=== PATIENT | female | born 1950 | race African-American/Black ===

== ENCOUNTER → 2017-07-22 | Outpatient (CLI) | payer OTHER ==
[~2017-07-22] MED LIST: ALBUTEROL2.5 MG/31 INH; ARICEPT 5 MG TAB5 MG PO; ASPIR 8181 MG PO; DARVOCET-N 1001 EACH PO; KEPPRA 500 MG500 M1 PER TUBE; KEPPRA 500 MG500 M1 PO; LISINOPRIL-HCT1 EACH PO; METFORMIN 500500 MG PO; MILK OF MA2400 MG/10 PO; MULTI-VITAMIN1 EAC1 PO; NAMENDA; NORFLEX100 MG PO; PAXIL10 MG PO; PLAVIX 75 MG TA75 M1 PO; PLAVIX 75 MG TA75 MG PO; REGLAN 10 MG TA10 MG PER TUBE; REGLAN 10 MG TA10 MG PO; SIMVASTATIN40 MG PO; TEGRETOL XR200 MG PO; TEGRETOL100 MG/5 M PO; TYLENOL325 MG PO; VALPROIC A250 MG/51 PO
[2017-07-22 10:58] VITALS: BP 124/88
== END | disposition home or self-care (01) ==
LOC: SPEC 06:19
DX: K94.23 Gastrostomy malfunction (principal); I10 Essential (primary) hypertension; E11.9 Type 2 diabetes mellitus without complications; K21.9 Gastro-esophageal reflux disease without esophagitis; J44.9 Chronic obstructive pulmonary disease, unspecified; Z79.4 Long term (current) use of insulin; Z86.73 Personal history of transient ischemic attack (TIA), and cerebral infarction without residual deficits; Z79.82 Long term (current) use of aspirin; Z79.899 Other long term (current) drug therapy; Z88.2 Allergy status to sulfonamides; Z98.890 Other specified postprocedural states

== ENCOUNTER 2018-10-18 17:56 | Emergency (ER) | payer OTHER ==
[~2018-10-18] VITALS: Ht 167.6 cm; Wt 81.7 kg
[~2018-10-18 17:56] MED LIST changes: +IPRAT-ALBUT 0.5-3 ML INH; +MUPIROCIN22 GM TOP; +POTASSIUM20 MEQ/15 PER TUBE; +VALPROIC A250 MG/51 PER TUBE; -VALPROIC A250 MG/51 PO
[2018-10-18 18:06] VITALS: BP 148/79
== END 2018-10-18 18:38 | disposition home or self-care (01) ==
LOC: ER 17:56
DX: Z43.1 Encounter for attention to gastrostomy (principal)

== ENCOUNTER 2019-03-26 07:47 | Emergency (ER) | payer OTHER ==
[~2019-03-26] VITALS: Ht 167.6 cm; Wt 90.7 kg
[2019-03-26 10:04] VITALS: BP 133/67
== END 2019-03-26 11:56 ==
LOC: ER 07:47
DX: K94.23 Gastrostomy malfunction (principal); I10 Essential (primary) hypertension; E11.9 Type 2 diabetes mellitus without complications; K21.9 Gastro-esophageal reflux disease without esophagitis; J44.9 Chronic obstructive pulmonary disease, unspecified; Z86.73 Personal history of transient ischemic attack (TIA), and cerebral infarction without residual deficits; Z88.6 Allergy status to analgesic agent; Y83.8 Other surgical procedures as the cause of abnormal reaction of the patient, or of later complication, without mention of misadventure at the time of the procedure; Y92.89 Other specified places as the place of occurrence of the external cause

== ENCOUNTER 2020-10-07 16:14 | Emergency (ER) | payer OTHER ==
[~2020-10-07] VITALS: Ht 170.2 cm; Wt 68.0 kg
[2020-10-07] MEDS ORDERED: LISINOPRIL5 MG PO (16:19)
[2020-10-07] MEDS ORDERED: METFORMIN HCL500 MG PO (16:20)
[2020-10-07 20:15] VITALS: BP 197/107
== END 2020-10-07 20:15 | disposition home or self-care (01) ==
LOC: ER 16:14
DX: Z43.1 Encounter for attention to gastrostomy (principal); R13.10 Dysphagia, unspecified; I10 Essential (primary) hypertension; E11.9 Type 2 diabetes mellitus without complications; K21.9 Gastro-esophageal reflux disease without esophagitis; J44.9 Chronic obstructive pulmonary disease, unspecified; Z79.899 Other long term (current) drug therapy; Z79.82 Long term (current) use of aspirin; Z88.8 Allergy status to other drugs, medicaments and biological substances

== ENCOUNTER 2021-01-21 21:20 | Inpatient (IN) | payer OTHER ==
[~2021-01-21] VITALS: Ht 167.6 cm; Wt 83.4 kg
[~2021-01-21 21:20] MED LIST changes: +LISINOPRIL5 MG PO; +METFORMIN HCL500 MG PO
[2021-01-21 21:23] VITALS: BP 169/103
[2021-01-21 21:34] LABS: BE(vivo) 2.2 mmol/L (-2 to +3); HCO3 24.4 mmol/L (22.0-26.0); PCO2 31.8 mmHg (35.0-45.0); PO2 64.9 mmHg (80.0-100.0); pH 7.502 (7.360-7.450); sO2 94.6 % (92.0-98.0)
--- NOTE | 2021-01-21 22:15 | NUR ---
Pt is difficult stick. Multiple RNs attempting access and lab draws
[2021-01-21] MEDS ORDERED: DOXYCYCLINE HY100 M3 PO (22:33)
[2021-01-21] MEDS ORDERED: HYOSCYAMIN0.125 MG/1 PO (22:37)
[2021-01-21] MEDS ORDERED: LEVEMIR100 UNIT/1 SUBQ (22:40)
[2021-01-21 23:07] LABS: HEMATOCRIT 51.6 % (37.0-47.0); HEMOGLOBIN 17.2 gm/dL (12.0-15.0); MCH 31.7 pg (26.0-34.0); MCHC 33.3 g/dL (28.0-37.0); MCV 95.1 fL (80.0-100.0); PLATELET COUNT 253 thou/uL (150-400); RBC 5.42 mil/uL (4.20-5.00); RDW 14.8 % (10.5-14.5); WBC 20.2 thou/uL (4.0-11.0)
--- NOTE | 2021-01-21 23:27 | NUR ---
After multiple attempts by 3 RNS with no IV access, Dr. Parham is aware. He will attempt with US. US at bedside. Lab alerted to help draw blood culures. Lab will come soon
[2021-01-21 23:31] LABS: ALBUMIN 2.3 g/dL (3.4-5.0); ANION GAP 10 mmol/L (7-16); BUN 18 mg/dL (7-18); CALCIUM 9.2 mg/dL (8.5-10.1); CHLORIDE 98 mmol/L (98-107); CO2 24 mmol/L (21-32); CREATININE 0.9 mg/dL (0.6-1.0); GLUCOSE 195 mg/dL (74-106); SGOT 100 U/L (15-37); SGPT 60 U/L (30-65); SODIUM 132 mmol/L (136-145); TOTAL BILIRUBIN 0.6 mg/dL (0.2-1.0); TOTAL PROTEIN 8.6 g/dL (6.4-8.2); TROPONIN-I <0.06 ng/mL (<0.06)
[2021-01-21 23:40] LABS: POTASSIUM 7.2 mmol/L (3.5-5.1)
--- NOTE | 2021-01-21 23:41 | NUR ---
lab at bedside for redraw of blood and blood culture
[2021-01-22 00:53] LABS: URINE BILIRUBIN 2+ (Negative); URINE BLOOD 2+ (Negative); URINE CLARITY TURBID; URINE COLOR ORANGE; URINE GLUCOSE-RANDOM* NEGATIVE (Negative); URINE KETONES 1+ (Negative); URINE NITRITE-REFLEX NEGATIVE (Negative); URINE PROTEIN (DIPSTICK) 2+ (Negative); URINE SPECIFIC GRAVITY >= 1.030 (1.005-1.035)
[2021-01-22 00:54] LABS: URINE LEUKOCYTES-REFLEX 2+ (Negative)
[2021-01-22 00:57] LABS: ABSOLUTE NEUTROPHILS 17.2 thou/uL (1.4-8.2)
[2021-01-22 00:58] LABS: PLATELET ESTIMATE NORMAL
[2021-01-22 01:11] LABS: CASTS None Seen /LPF (None Seen); CRYSTALS None Seen /LPF (None Seen); MUCUS 4-6 Moderate strn/LPF (None Seen); SQUAMOUS >10 Many /LPF (0-3); URINE WBC-REFLEX >25 Many /HPF (0-5); WBC CLUMPS Moderate (None Seen)
--- NOTE | 2021-01-22 02:00 | NUR ---
DR. OLIVO LOGISTICS MANAGEMENT SPECIALIST AT BEDSIDE ASSESSING PT.
[2021-01-22 02:12] LABS: CHOLESTEROL 129 mg/dL (<200); HDL CHOLESTEROL 44 mg/dL (>40); LDL CHOLESTEROL 65 mg/dL (<100); TC:HDL 2.9 Ratio (Not establshd); TRIGLYCERIDE 101 mg/dL (<150); VLDL 20 mg/dL (<40)
[2021-01-22 02:15] LABS: SERUM ASSESSMENT Clear
[2021-01-22 02:48] LABS: HEMATOCRIT 46.3 % (37.0-47.0); HEMOGLOBIN 15.5 gm/dL (12.0-15.0); MCH 31.9 pg (26.0-34.0); MCHC 33.6 g/dL (28.0-37.0); MCV 95.1 fL (80.0-100.0); RBC 4.87 mil/uL (4.20-5.00); RDW 14.7 % (10.5-14.5); WBC 16.1 thou/uL (4.0-11.0)
[2021-01-22 03:02] LABS: CALCIUM 8.5 mg/dL (8.5-10.1); CREATININE 0.9 mg/dL (0.6-1.0); POTASSIUM 5.4 mmol/L (3.5-5.1)
[2021-01-22] MEDS ORDERED: MILK OF MA400 MG/5 M PER TUBE (03:58)
[2021-01-22 06:17] VITALS: BP 171/95
--- NOTE | 2021-01-22 07:14 | EKG ---
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 : 1950 Requested By: Toñito Dudley Order Number: [id number] MD: Trip Feliciano Measurements Intervals [place] Rate: 102 P: -26 NM: 131 QRS: -64 QRSD: 80 T: 55 QT: 325 QTc: 424 Interpretive Statements Sinus tachycardia Left anterior fascicular block Consider anterior infarct Minimal ST depression Baseline wander in lead(s) I,aVR,aVL,V2,V4,V5 No previous ECG available for comparison Electronically Signed On 01-22-2021 7:13:58 CDT by Trip Feliciano [email or web address] <ELECTRONICALLY SIGNED> By: Trip Feliciano MD, [facility] 01/22/21 0713 214 40 Trip Feliciano MD, [facility] /EPI
[2021-01-22 07:54] VITALS: BP 153/91
--- NOTE | 2021-01-22 08:18 | EKG ---
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 : 1950 Requested By: Nahum Poon Order Number: [id number] MD: Dick Cavanaugh Measurements Intervals [place] Rate: 110 P: 35 AR: 127 QRS: -67 QRSD: 75 T: 58 QT: 315 QTc: 427 Interpretive Statements Sinus tachycardia Left anterior fascicular block Consider anterior infarct Baseline wander in lead(s) II,III,aVL,aVF,V2,V3,V4 Compared to ECG 01/21/2021 21:41:33 No significant change was found Electronically Signed On 01-22-2021 8:18:36 CDT by Dick Cavanaugh [email or web address] <ELECTRONICALLY SIGNED> By: Dick Cavanaugh MD, [facility] 01/22/21 0818 2144 2144 Dick Cavanaugh MD, [facility] /EPI
--- NOTE | 2021-01-22 08:20 | NUR ---
PT ORIENTED TO ROOM AND UNIT, BED LOW AND LOCKED, SIDE RAILS UPX3, CALL LIGHT IN REACH AND TELE APPLIED. WILL CONTINUE TO ASSESS.
[2021-01-22 11:43] VITALS: BP 148/99
--- NOTE | 2021-01-22 13:37 | NUR ---
ASSESSMENT: CM REVIEWED CHART. PT WAS ADMITTED FROM [facility]. PT HAS PAST HX OF CVA AND RIGHT HEMIPARESIS AND IS NONVERBAL. PT WAS ADMITTED DUE TO POSSIBLE PNEUMONIA ACCOMPANIED BY NAUSEA AND VOMITTING AND POSSIBLE SEPSIS/UTI. PTS DAUGHTER GETACHEW IS HER DPOA. CM SPOKE WTSTEFANY [facility]L [facility] AT [facility]. PT IS NORMALLY IN A WHEELCHAIR. PLANS ARE FOR PATIENT TO RETURN TO [facility] ONCE MEDICALLY STABLE. PT DOES NOT NORMALLY WEAR OXYGEN AT THE FACILITY AND IS CURRENTLY ON 2L. PT IS CURRENTLY BEING TREATED ON IV ANBX. CM FAXED UPDATED CLINICAL OVER TO [facility] AND WILL CONTINUE TO KEEP THEM UPDATED. CM WILL CONTINUE TO FOLLOW TO ASSIST NEEDED.
[2021-01-22 15:56] VITALS: BP 135/75
--- NOTE | 2021-01-22 16:31 | NUR ---
VASCULAR ACCESS NURSE ROUNDING ON A CONSULT FOR PICC PLACEMENT. SPOKE WITH THE DAUGHTER AND HER NURSE MYKE. THIS PATIENT IS NOTED TO HAVE POSITIVE BLOOD CULTURES AND HAS BEEN STARTED ON NEW ANTIBIOTICS FOR LESS THAN 24 HOURS. A 2ND PIV PLACEMENT WAS OFFERED BUT HER NURSE FEELS SHE HAS ADEQUATE ACCESS AT THIS TIME. DR. WESLEY WAS PAGED TO DISCUSS, AWAITING CALL BACK AT THIS TIME. WE WILL FOLLOW UP AND PLACE ADDITIONAL PIV OR PICC AFTER RISK/BENIFIT OF LINE PLACEMENT WITH A CURRENT BLOOD STREAM INFECTION IS DISCUSSED. DAUGHTER AND CCU NURSE AGREE.
[2021-01-22 20:28] VITALS: BP 135/80; BP 152/99
[2021-01-22 23:43] VITALS: BP 138/69
[2021-01-23] VITALS (7 sets, daily range): BP systolic 134–164; BP diastolic 65–92
[2021-01-23 01:06] LABS: GLYCOHEMOGLOBIN (HGB A1C) 5.6 % (4.8-5.6)
--- NOTE | 2021-01-23 03:45 | NUR ---
PT NON-VERBAL,OPEN EYES SPOTANEOUSLY AND SEEMS TO FOLLOW SIMPLE COMMANDS AND TRACT STAFF WITH HER EYES WHILE MOVING AROUND IN THE ROOM.PT KEEPS EYE CONTACT DURING CARE.RIGHT SIDED WEAKNESS 2/2 CVA,STACHY ON MONITOR.SUCTIONED FREQUENTLY D/T INCREASED ORAL SECRETIONS.Q2H.VICTOR DD.ON O2 AT 2LITERS PNC.ANTIBIOTICS INFUSED PER ORDERS.NO S/SX OF PAIN NOTED.ASSESSMENT COMPLETED DOCUMENTED.WILL CONT TO MONITOR PER POC.
--- NOTE | 2021-01-23 09:58 | NUR ---
TF recommendation: when pt appropritae, continue her usual TF of Glucerna 1.2 at 65 ml/hr which meets about 100% est kcal and protein needs.
[2021-01-23 10:28] LABS: MAGNESIUM 1.7 mg/dL (1.8-2.4); TOTAL BILIRUBIN 0.3 mg/dL (0.2-1.0); TOTAL PROTEIN 6.4 g/dL (6.4-8.2)
[2021-01-23 10:34] LABS: POTASSIUM 3.1 mmol/L (3.5-5.1)
[2021-01-23 10:35] LABS: ALBUMIN 1.6 g/dL (3.4-5.0); CALCIUM 7.7 mg/dL (8.5-10.1); CREATININE 0.7 mg/dL (0.6-1.0)
--- NOTE | 2021-01-23 12:30 | NUR ---
WOUND CONSULT; ROUNDING WITH DR GONZALEZ AND DEBBIE VIGIL. THE PATIENT HAS AN UNSTAGABLE PRESSURE INJURY TO THE TIGHT LATERAL MALLEOLOUS COVER WITH ESHAR. NO VISUAL S/S OF INFECTION. RECOMMENDATIONS; DR PETTY ORDERED XEROFORM/BORDER FOAM, CHANGE M/W/F PRN. DISCUSSED WITH RYDER
--- NOTE | 2021-01-23 15:53 | NUR ---
BPCI letter provided to patient via patient access & added to chart, unable to speak to patient and no family available, lives at [facility] as assisted care resident
--- NOTE | 2021-01-24 02:44 | NUR ---
ASSUMED PT CARE AT 1900, NONVERBAL, TRACKS STAFF WITH EYES, ST/SR ON TELE, ASSESSMENTS CHARTED, MG+ AND k+ REPLACED, MEDS GIVEN PER OCT, NO APPARENT PAIN, SUCTIONED PRN, Q2 TURNS MAINTAINED, NO NEEDS AT THIS TIME, WILL CONTINUE TO MONITOR AND FOLLOW POC
[2021-01-24 04:27] VITALS: BP 151/91
[2021-01-24 05:18] LABS: ABSOLUTE NEUTROPHILS 12.5 thou/uL (1.4-8.2); BASOPHILS 0.4 % (0.0-2.0); EOSINOPHILS 0.2 % (0.0-3.0); HEMATOCRIT 40.3 % (37.0-47.0); LYMPHOCYTES 6.9 % (24.0-44.0); MCH 31.9 pg (26.0-34.0); MCHC 33.4 g/dL (28.0-37.0); MCV 95.4 fL (80.0-100.0); MONOCYTES 5.1 % (1.0-8.0); PLATELET COUNT 183 thou/uL (150-400); POLYS 87.4 % (36.0-66.0); RBC 4.23 mil/uL (4.20-5.00); RDW 14.7 % (10.5-14.5); WBC 14.3 thou/uL (4.0-11.0)
[2021-01-24 05:26] LABS: HEMOGLOBIN 13.5 gm/dL (12.0-15.0)
[2021-01-24 06:00] LABS: CALCIUM 8.2 mg/dL (8.5-10.1); CREATININE 0.7 mg/dL (0.6-1.0)
[2021-01-24 06:06] LABS: POTASSIUM 2.7 mmol/L (3.5-5.1)
[2021-01-24 08:15] VITALS: BP 185/105
[2021-01-24 12:17] VITALS: BP 172/97
[2021-01-24 16:00] VITALS: BP 193/109; BP 195/111
--- NOTE | 2021-01-24 17:17 | NUR ---
PT ALERT AND ORIENTED TO SELF. PRN PAIN MED GIVEN FOR GENERALISED PAIN. TURNED AND REPOSITIONED Q2 AND NEEDED. HAD HIGH BP THIS SHIFT. DR. WESLEY NOTIFIED. NEW ORDERS RECEIVED. SUCTIONED X3 THIS AM. ORDERS GIVEN FOR SCOPOLAMINE PATCH. NO CONCERNS AT THIS TIME.
[2021-01-24 18:16] VITALS: BP 155/97
[2021-01-24 19:10] VITALS: BP 147/82; BP 156/109
[2021-01-25 04:23] VITALS: BP 151/88
[2021-01-25 04:49] LABS: HEMATOCRIT 44.2 % (37.0-47.0); HEMOGLOBIN 14.7 gm/dL (12.0-15.0); MCH 31.9 pg (26.0-34.0); MCHC 33.2 g/dL (28.0-37.0); MCV 96.1 fL (80.0-100.0); RBC 4.59 mil/uL (4.20-5.00); RDW 14.6 % (10.5-14.5); WBC 18.4 thou/uL (4.0-11.0)
--- NOTE | 2021-01-25 04:54 | NUR ---
assumed pt care at 1900, assessments as charted, meds given as per oct, vss, no apparent pain noted, sr on tele, titrated to 1l o2 via nasal canula, o2sats stable, decreased secretion and cough noted, scopalamine patch in place, no needs at this shruthi, will continueto monitor and follow poc
[2021-01-25 06:15] LABS: CALCIUM 8.4 mg/dL (8.5-10.1); CREATININE 0.6 mg/dL (0.6-1.0); MAGNESIUM 1.9 mg/dL (1.8-2.4)
[2021-01-25 06:19] LABS: POTASSIUM 3.1 mmol/L (3.5-5.1)
[2021-01-25 08:00] VITALS: BP 151/83
[2021-01-25 12:28] VITALS: BP 152/74
--- NOTE | 2021-01-25 15:56 | NUR ---
ASSESSMENT CHARTED. PT ALERT TO SELF. NEW ORDERS NOTED. TUBE FEEDING STARTED AT 30CC/HR. WILL CONTINUE WITH PLAN OF CARE.
[2021-01-25 16:00] VITALS: BP 152/76
[2021-01-25 20:30] VITALS: BP 145/72
[2021-01-26] VITALS (8 sets, daily range): BP systolic 131–151; BP diastolic 62–75
--- NOTE | 2021-01-26 08:43 | NUR ---
assessments as charted, tolerating tube feeding, prn tylenol given for generalized pain, repositioned frequently, suctioned once, vss, report given to next shift to con't ppoc.
[2021-01-26 12:17] LABS: HEMOGLOBIN 13.8 gm/dL (12.0-15.0)
[2021-01-26 12:20] LABS: HEMATOCRIT 41.4 % (37.0-47.0)
[2021-01-26 12:24] LABS: ABSOLUTE NEUTROPHILS 11.2 thou/uL (1.4-8.2); BASOPHILS 0.5 % (0.0-2.0); EOSINOPHILS 0.6 % (0.0-3.0); LYMPHOCYTES 9.8 % (24.0-44.0); MCH 31.9 pg (26.0-34.0); MCHC 33.4 g/dL (28.0-37.0); MCV 95.4 fL (80.0-100.0); PLATELET COUNT 214 thou/uL (150-400); POLYS 84.1 % (36.0-66.0); RBC 4.34 mil/uL (4.20-5.00); RDW 14.4 % (10.5-14.5); WBC 13.4 thou/uL (4.0-11.0)
[2021-01-26 12:27] LABS: CALCIUM 8.7 mg/dL (8.5-10.1); CREATININE 1.2 mg/dL (0.6-1.0); MAGNESIUM 1.7 mg/dL (1.8-2.4)
[2021-01-26 12:31] LABS: POTASSIUM 2.8 mmol/L (3.5-5.1)
--- NOTE | 2021-01-26 18:55 | NUR ---
PT CARE ASSUMED AT 0700. ASSESSMENTS CHARTED. MEDICATIONS CHARTED. MICHELE IV. SINUS RHYTHM. VICTOR. LG LIQUID BM X 2. TUBE FEEDING; GLUCERNA 1.2 AT 50, GOAL 60. SKIN TEAR RT ANKLE. Z-GUARD ON LT BOTTOM. OCCASSIONAL SECRETIONS IN MOUTH AND THROAT. NONVERBAL. BEDREST.
[2021-01-27] VITALS (7 sets, daily range): BP systolic 120–136; BP diastolic 49–67
[2021-01-27 05:56] LABS: ALBUMIN 1.5 g/dL (3.4-5.0); CREATININE 1.1 mg/dL (0.6-1.0); PHOSPHORUS 1.9 mg/dL (2.5-4.9)
[2021-01-27 06:03] LABS: POTASSIUM 2.6 mmol/L (3.5-5.1)
--- NOTE | 2021-01-27 07:43 | NUR ---
pt with copious amts of watery stool- fecal management system placed brown liquid stools collected and also leaking around tube placed, vss, no c/o pain, prn tylenol given for generalized pain at hs, tube feeding increased to 60ml and is now at goal, repositioned frequently, report given to next shift to con't ppoc.
--- NOTE | 2021-01-27 08:08 | HC ---
[facility] [place] [address] CONSULTATION Name: ISAMAR IVERSON Room #: 217-P ADM IN M.R.#: [id number] Admission: 01/22/21 Attend Phys: Nahum Poon MD Discharge: Date of : 54 Report #: [id number] THIS REPORT FOR: cc: Vj Dennison James D. DO Stephens, Thad A. MD ~ DOC #: [id number] Lc Mayes MD DATE OF SERVICE: 01/23/2021 WOUND CARE CONSULTATION PERSONAL PHYSICIAN: Vj __. CHIEF COMPLAINT: Right lateral ankle ulcer. HISTORY OF PRESENT ILLNESS: This is a 70-year-old white female, who presents from the long-term care facility for evaluation of nausea and vomiting. Nursing staff states on admission, the patient was noted to have a chronic ulcer on the right lateral ankle. There is no dressing over the wound itself. No family is present at the time. The patient herself has dementia and is nonverbal. Nursing staff stated there was also a dermatitis to the sacrococcygeal and gluteal region, but no signs of open ulcerations. Nursing staff deny any other associated wounds. PAST MEDICAL HISTORY: Significant for hyperlipidemia, previous CVA with right-sided hemiplegia and paresis, hypertension, diabetes, protein-calorie malnutrition, dysphagia, status post PEG tube placement, COPD, hypertension. CURRENT MEDICATIONS: Multiple. I reviewed the patient's medication list. DRUG ALLERGIES: DILANTIN. SOCIAL HISTORY: The patient resides in a long-term care facility. FAMILY HISTORY: Unobtainable because of the patient's demented state. REVIEW OF SYSTEMS: Unobtainable because of the patient's demented state. PHYSICAL EXAMINATION: VITAL SIGNS: Stable. The patient is afebrile. GENERAL: This is an awake, but not alert, oriented black female, who is nonverbal. HEENT: Normocephalic, atraumatic. Mucous membranes are dry. Pupils are round. Sclerae white. NECK: Without JVD. [facility] [address] [place] [address] CONSULTATION Name: ZAYRAISAMAR Room #: 217- ADM IN M.R.#: [id number] Admission: 01/22/21 Attend Phys: Nahum Poon MD Discharge: Date of : 54 Report #: [id number] LUNGS: Coarse breath sounds heard throughout. HEART: Tachycardic. ABDOMEN: Soft, nontender. PEG tube placement is in place. EXTREMITIES: Evaluation of sacrococcygeal and gluteal region reveals most of her associated skin dermatitis with mild excoriation, but no open ulcerations or signs of pressure. The patient has significant contractures, bilateral lower extremities. There is 1+ dorsalis pedis pulses bilaterally. On the right lateral ankle is a chronic unstageable decubitus ulcer with 100% slough. Periwound is otherwise intact. There is no significant tunneling or undermining. Bilateral heels are intact. NEUROLOGIC: Cranial nerves II-XII are grossly intact. LABORATORY DATA: White count 16.1, hemoglobin 15.5, BUN 11, creatinine 0.7, albumin 1.6. ASSESSMENT: 1. Chronic ulceration, right lateral malleolus unstageable in nature. 2. CVA with significant contractures. 3. Severe protein-calorie malnutrition with albumin of 1.7. 4. Moisture-associated skin dermatitis, bilateral gluteal and sacrococcygeal region. PLAN: At this time, we will start Xeroform and a foam dressing over the right lateral ankle ulcer and have this changed daily. The patient is a low air loss surface, have her turned every 2 hours. We will put the patient in a heel protection boots on at all times. We will use a barrier cream to the sacral and gluteal region b.i.d. and p.r.n. soilage. We will continue all other current medications at this time. Appreciated ability to consult. MD HANNAH Higgins/TITA <ELECTRONICALLY SIGNED> By: Lc Mayes MD 01/27/21 0808 1210 2319 Lc Mayes MD /georgi
--- NOTE | 2021-01-27 19:37 | NUR ---
PT CARE ASSUED AT 0700. ASSESSMENTS AAS CHARTED. MEDICATIONS CHARTED. MICHELE IV. SINUS RHYTHM. VICTOR, FECAL MGT SYSTEM. WOUNDS; RT ANKLE SKIN TEAR, SM BUTTOCKS . TUBE FEEDING; GLUCEERNA 1.2 AT 60.
--- NOTE | 2021-01-28 04:37 | NUR ---
ASSUMED PT CARE AT 1900, PT IS NONVERBAL, NO APPARENT PAIN OR DISCOMFORT NOTED, SR ON TELE, MEDS GIVEN PER OCT, ASSESSMENTS CHARTED, MOUTH CARE COMPLETED, SUCTIONEDX1, TF INFUSING AT GOAL, 120CC RESIDUAL, NO NEEDS AT THIS TIME, WILL CONTINUE TO MONITOR AND FOLLOW POC
[2021-01-28 05:49] LABS: HEMATOCRIT 37.1 % (37.0-47.0); HEMOGLOBIN 12.1 gm/dL (12.0-15.0); MCH 31.5 pg (26.0-34.0); MCHC 32.7 g/dL (28.0-37.0); MCV 96.3 fL (80.0-100.0); RBC 3.85 mil/uL (4.20-5.00); RDW 15.2 % (10.5-14.5); WBC 11.2 thou/uL (4.0-11.0)
[2021-01-28 06:07] LABS: ALBUMIN 1.4 g/dL (3.4-5.0); CALCIUM 8.6 mg/dL (8.5-10.1); CREATININE 1.2 mg/dL (0.6-1.0); MAGNESIUM 1.8 mg/dL (1.8-2.4)
[2021-01-28 07:35] VITALS: BP 128/74
[2021-01-28] MEDS ORDERED: FIRVANQ50 MG/1 ML PER TUBE (08:33)
[2021-01-28] MEDS ORDERED: CEFUROXIME500 MG PER TUBE (08:47)
[2021-01-28 10:24] VITALS: BP 128/74
--- NOTE | 2021-01-28 10:56 | NUR ---
Patient to discharge to [facility] today. Patient appears nonresponsive. Faxed orders. Transport for 100-1200 via stretcher van arranged by [facility]. Notified dtr of time of discharge. no further needs.
== END 2021-01-28 12:00 | DRG 871 ==
LOC: ER 21:20 → 2N 01-22 01:23 → EROBS 01-22 01:23 → 2N 01-22 07:33
PROVIDERS: Emergency Medicine; Hospitalist; Nurse Practitioner Family; Physician Assistant; ADMIT Internal Medicine; ATTEND Internal Medicine
DX: A41.59 Other Gram-negative sepsis (principal); J18.9 Pneumonia, unspecified organism; G92 Toxic encephalopathy; E43 Unspecified severe protein-calorie malnutrition; J96.21 Acute and chronic respiratory failure with hypoxia; N39.0 Urinary tract infection, site not specified; E87.0 Hyperosmolality and hypernatremia; I69.351 Hemiplegia and hemiparesis following cerebral infarction affecting right dominant side; J44.0 Chronic obstructive pulmonary disease with (acute) lower respiratory infection; K21.9 Gastro-esophageal reflux disease without esophagitis; E78.5 Hyperlipidemia, unspecified; L30.9 Dermatitis, unspecified; K59.00 Constipation, unspecified; F03.90 Unspecified dementia, unspecified severity, without behavioral disturbance, psychotic disturbance, mood disturbance, and anxiety; G40.409 Other generalized epilepsy and epileptic syndromes, not intractable, without status epilepticus; R13.19 Other dysphagia; R53.81 Other malaise; I11.0 Hypertensive heart disease with heart failure; L89.510 Pressure ulcer of right ankle, unstageable; I50.9 Heart failure, unspecified; E87.6 Hypokalemia; E86.1 Hypovolemia; E11.622 Type 2 diabetes mellitus with other skin ulcer; B96.89 Other specified bacterial agents as the cause of diseases classified elsewhere; Z88.8 Allergy status to other drugs, medicaments and biological substances; Z93.1 Gastrostomy status; Z68.29 Body mass index [BMI] 29.0-29.9, adult; Z79.82 Long term (current) use of aspirin; Z79.899 Other long term (current) drug therapy; Z20.822 Contact with and (suspected) exposure to COVID-19
CPT/HCPCS: 10081

== ENCOUNTER 2021-02-02 13:20 | Emergency (ER) | payer OTHER ==
[~2021-02-02] VITALS: Ht 162.6 cm; Wt 104.3 kg
--- NOTE | ~2021-02-02 | EMS ---
[facility] [address] [place] [address] EMS Patient Care Report Name: ISAMAR IVERSON Room #: REG BECKY Marquez#: [id number] Admission: 02/02/21 Attend Phys: Discharge: Date of : 54 Report #: [id number] THIS REPORT FOR: //name// Report Transmitted: 02/02/2021 13:51 EMS Care Summary [place], [place]/[facility] Incident [id number] @ 02/02/2021 12:44 Incident Location [address] [place] [address] Patient ISAMAR IVERSON Female, 70 Years 1950 Patient Address [address] [place] [address] Patient History Congestive Heart Failure (CHF),Chronic Obstructive Pulmonary Disease (COPD),Diabetes,Stroke/CVA,Hyperlipidemia,Paraplegia,Dysphagia,Hypokalemia,Coron marisol Artery Disease (CAD), Patient Allergies Phenytoin,Dilantin, Patient Medications Lisinopril, Metformin, Clopidogrel, Potassium, Insulin, Carbamazepine, Hyoscyamine, Doxycycline, Keppra, Chief Complaint unresponsive Disposition Transported No Lights/[place] Dispatch Reason Sick Person Transported To [facility] [address] [place] [address] EMS Patient Care Report Name: ISAMAR IVERSON Room #: MYKEL Marquez#: [id number] Admission: 02/02/21 Attend Phys: Discharge: Date of : 54 Report #: [id number] Narrative S: 70 yo female was recently hospitalized for sepsis. [facility] Today the nursing staff came in to find her with altered mental status. The pt is normally nonverbal, but tracks with her eyes. She is not unresponsive and not tracking at all. Upon our arrival the pt was laying in bed, unresponsive, without labored breathing noted. The pt does not appear to have any vomit around her. She gets all of her nutrition via tube feeding. The pt does not express any discomfort. O: gcs- 3, mild resp distress noted. ECG- ST. The pt is bedbound. She has foam padding under her legs. no other obvious injury or illness noted. A: unresponsive P: vs, ecg, oxygen, IV not attempted due to poor access. Pt transported to [facility] without any changes. Initial Vitals @13:08P: 118,SpO2: 84, @13:04P: 120,SpO2: 84, @12:59P: 118,SpO2: 63, @13:12P: 119,R: 30,BP: 177/88,Pain: 0/10,GCS: 3,Revised Trauma: 7, @13:04P: 121,R: 30,BP: 146/51,Pain: 0/10,GCS: 3,Temp: 103F,Glucose: -1,SpO2: 84,Revised Trauma: 7, Assessments @12:54MENTAL:Unresponsive,SKIN:No Abnormalities,HEENT:Head/Face: No Abnormalities,LUNG SOUNDS:ABDOMEN:PELVIS//GI:EXTREMITIES:PULSE:NEURO: Impression Altered Mental Status Procedures @12:54ALS AssessmentResponse: UnchangedSucceeded@12:583-Lead ECGResponse: UnchangedSucceeded@12:56Oxygen FlowRate: 6 Device: Nasal Cannula (NC) Response: UnchangedSucceeded Timeline 12:42,Call Received 12:42,Dispatch Notified 12:44,Dispatched 12:44,En Route 12:52,On Scene 12:54,At Patient 12:54,ALS Assessment,Response: UnchangedSucceeded, 12:56,Oxygen FlowRate: 6 Device: Nasal Cannula (NC) Response: UnchangedSucceeded, 12:58,3-Lead ECG,Response: UnchangedSucceeded, 12:59,BP: / M,PULSE: 118,RR: R,SPO2: 63 Ox,ETCO2: ,BG: ,PAIN: ,GCS: , [facility] [address] [facility] [place] [address] EMS Patient Care Report Name: ISAMAR IVERSON Room #: REG BECKY Marquez#: [id number] Admission: 02/02/21 Attend Phys: Discharge: Date of : 54 Report #: [id number] 13:03,Depart Scene 13:04,BP: 146/51 M,PULSE: 121,RR: 30 R,SPO2: 84 Ox,ETCO2: ,BG: -1,PAIN: 0,GCS: 3, 13:04,BP: / M,PULSE: 120,RR: R,SPO2: 84 Ox,ETCO2: ,BG: ,PAIN: ,GCS: , 13:08,BP: / M,PULSE: 118,RR: R,SPO2: 84 Ox,ETCO2: ,BG: ,PAIN: ,GCS: , 13:12,BP: 177/88 M,PULSE: 119,RR: 30 R,SPO2: Ox,ETCO2: ,BG: ,PAIN: 0,GCS: 3, 13:13,At Destination 13:50,Call Closed Disclaimer v1.1 Copyright 2020 [employer] This EMS Care Summary contains data elements from the applicable legal record (which may be displayed differently). It is designed to provide pertinent information for the following purposes: continuity of care, clinical quality, and state data reporting. The complete legal record is available to ED staff and administrators of the receiving hospital in [employer]'s Patient Tracker. All data is provided "as is."
[~2021-02-02 13:20] MED LIST changes: +CEFUROXIME500 MG PER TUBE; +DOXYCYCLINE HY100 M3 PO; +FIRVANQ50 MG/1 ML PER TUBE; +HYOSCYAMIN0.125 MG/1 PO; +LEVEMIR100 UNIT/1 SUBQ; +MILK OF MA400 MG/5 M PER TUBE
[2021-02-02 14:10] LABS: HEMATOCRIT 44.1 % (37.0-47.0); HEMOGLOBIN 12.8 gm/dL (12.0-15.0); MCH 30.9 pg (26.0-34.0); MCHC 28.9 g/dL (28.0-37.0); MCV 106.8 fL (80.0-100.0); PLATELET COUNT 256 thou/uL (150-400); RBC 4.13 mil/uL (4.20-5.00); WBC 20.9 thou/uL (4.0-11.0)
[2021-02-02 14:13] VITALS: BP 00/00
--- NOTE | 2021-02-02 14:35 | EKG ---
[place] [address] [facility] [place] [address] ELECTROCARDIOGRAM REPORT Name: ISAMAR IVERSON Room #: [facility] BECKY JulioJulio#: [id number] Admission: 02/02/21 Attend Phys: Discharge: Date of : 54 Report #: [id number] [facility] ED Test Date: 2021-02-02 Test Time: 14:07:25 Pat Name: ISAMAR IVERSON Department: Room: Gender: F Benefits Representative: THEODORA : 1950 Requested By: Rick Parham Order Number: [id number] MD: Trip Feliciano Measurements Intervals [place] Rate: 47 P: DC: QRS: -45 QRSD: 107 T: -11 QT: 518 QTc: 458 Interpretive Statements Junctional rhythm LAD, consider left anterior fascicular block Anterior infarct, old Nonspecific repol abnormality, inferior leads Compared to ECG 01/21/2021 21:44:26 Junctional rhythm now present Early repolarization now present Sinus tachycardia no longer present Myocardial infarct finding still present Electronically Signed On 02-02-2021 14:34:41 CDT by Trip Feliciano [email or web address] <ELECTRONICALLY SIGNED> By: Trip Feliciano MD, FAC 02/02/21 1434 1407 1407 Trip Feliciano MD, [facility] /EPI
[2021-02-02 14:36] LABS: ABSOLUTE NEUTROPHILS 18.2 thou/uL (1.4-8.2); ANISOCYTOSIS 1+; MACROCYTES 1+
== END 2021-02-02 14:13 ==
LOC: ER 13:20
PROVIDERS: Emergency Medicine
DX: A41.9 Sepsis, unspecified organism (principal); R65.21 Severe sepsis with septic shock; I10 Essential (primary) hypertension; E11.9 Type 2 diabetes mellitus without complications; K21.9 Gastro-esophageal reflux disease without esophagitis; Z88.8 Allergy status to other drugs, medicaments and biological substances; Z79.82 Long term (current) use of aspirin; Z79.899 Other long term (current) drug therapy